=== PATIENT | male | born 1990 | race Two or more races ===

== ENCOUNTER 2024-10-16 09:38 | Outpatient (REF) | payer MEDICAID, SELFPAY ==
[2024-10-16 12:22] LABS: Cortisol Random 12.6 ug/dL
[2024-10-16 12:27] LABS: HBS Num1 1.56 mIU/mL (0-7.99); HBc Num1 11.96 S/CO (0.00-0.79); ~Hepatitis B Surface Antibody NONREACTIVE (Nonreactive)
[2024-10-16 12:32] LABS: HBsAGNum1 5171.43 S/CO (0.00-0.99); HIV AB/AG Nonreactive (Nonreactive); HIV Num 1 0.06 S/CO (0.00-0.99); ~HepC Num1 0.15 S/CO (0.00-0.79); ~Hepatitis C Antibody Nonreactive (Nonreactive)
[2024-10-16 13:41] LABS: HBc Num2 11.72 S/CO; HBc Num3 11.64 S/CO; HBsAGNum2 Reactive; HBsAGNum3 Reactive; Hepatitis B Core Antibody Reactive (Nonreactive); Hepatitis B Surface Antigen Retest CNFM (Negative)
--- OUTSIDE RECORDS SUMMARY | 2024-10-16 14:03 | XMS_ITS | Encounter Summary ---
Author Organization [employer] Address [address] [facility] 7[address] [place] [address] Care Team Providers Care Technical Business Analyst Name Role Phone Cindy Jacob VANCE Primary Care Provider [phone] Encounter Details Date Type Department Care Team (Latest Contact Info) Description 10/16/2024 Travel Social History Tobacco Use Types Packs/Day Years Used Date Smoking Tobacco: Never Smokeless Tobacco: Never Alcohol Use Standard Drinks/Week Comments Never 0 (1 standard drink = 0.6 oz pur e alcohol) Depression Answer Date Recorded Patient Health Questionnaire-9 Score 0 10/16/2024 Patient Health Questionnaire-9 Score 0 10/16/2024 Last PHQ-9: Questionnaire Data Not on file 0 10/16/2024 Housing Stability Answer Date Recorded What is your housing situation today? I have leslie cook 10/16/[address] you li ve. Do you have problems with any of the following? None of the above 10/16/2024 Food Insecurity Answer Date Recorded Within the past 12 months, y ou worried that your food would run out before you got money to buy more: Never True 10/16/2024 Within the past 12 months,th e food you bought just didn't last and you didn't have enough money to get more: Never True Transportation Answer Date Recorded In the past 12 months, has l ack of transportation kept you from medical appts, meetings, work or from getting things needed for daily living? No 10/16/2024 Utilities Answer Date Recorded In the past 12 months, has t he electric, gas, oil or water company threatened to shut off services in your home? No 10/16/2024 Depression Answer Date Recorded Patient Health Questionnaire-2 Score 0 10/16/2024 Internet Access Answer Date Recorded Internet Access Q1 Yes 10/16/2024 Internet Access Q2 Not on file 10/16/2024 Sex and Gender Information Value Date Recorded Sex Assigned at Male 07/20/2022 10:16 AM EDT Legal Sex Male 10:16 AM EDT Gender Identity Male 07/20/2022 10:16 AM EDT Sexual Orientation Don't know 07/20/2022 10 :16 AM EDT documented as of this encounter Plan of Treatment Not on file documented as of this encounter Visit Diagnoses Not on filedocumented in this encounter Additional Health Concerns Assessment Noted Time PHQ-9 Depression Total Score: 0 10/16/19 25 9:08 AM EST documented as of this encounter Care Teams Technical Business Analyst Relationship Specialty Start Date End Date Cindy Jacob NP [address] [place] [id number] PCP - General Family Medicine 06/25/23 documented as of this encounter
--- OUTSIDE RECORDS SUMMARY | 2024-10-16 14:03 | XMS_ITS | Encounter Summary ---
Author Organization [employer] Address [address] [facility] 7t [place] [address] Care Team Providers Care Game Room Attendant Name Role Phone Cindy Jacob NP Primary Care Provider [phone] Reason for Visit * Reason Onset Date Comments Nurse Triage 09/21/2024 Encounter Details Date Type Department Care Team ([facility] st Contact Info) Description 09/21/2024 Telephone [facility] MEDICINE [address] [place], [place] [id number] Cindy Jacob NP [address] [place] [address] Nurse Triage Social History Tobacco Use Types Packs/Day Years Used Date Smoking Tobacco: Never Smokeless Tobacco: Never Alcohol Use Standard Drinks/Week Comments Never 0 (1 standard drink = 0.6 oz pur e alcohol) Housing Stability Answer Date Recorded What is your housing situation today? I have leslie cook 09/17/[address] you li ve. Do you have problems with any of the following? None of the above 09/17/2023 Food Insecurity Answer Date Recorded Within the past 12 months, y ou worried that your food would run out before you got money to buy more: Never True 09/17/2023 Within the past 12 months,th e food you bought just didn't last and you didn't have enough money to get more: Never True Transportation Answer Date Recorded In the past 12 months, has l ack of transportation kept you from medical appts, meetings, work or from getting things needed for daily living? No 09/17/2023 Utilities Answer Date Recorded In the past 12 months, has t he electric, gas, oil or water company threatened to shut off services in your home? No 09/17/2023 Sex and Gender Information Value Date Recorded Sex Assigned at Male 07/20/2022 10:16 AM EDT Legal Sex Male 10:16 AM EDT Gender Identity Male 07/20/2022 10:16 AM EDT Sexual Orientation Don't know 07/20/2022 10 :16 AM EDT documented as of this encounter Miscellaneous Notes * Telephone Encounter - Jaquelin Arora RN - 09/26/2024 3:48 PM EST Tc to parent of pt in regards to appt request with PCP in the morning. Informed mom that PCP next available appt will not be until 10/16/24. Mom gave the phone to daughter to help with [place] translation. Daughter reports that pt last BM was on Wednesday and reports pt does not like to move their bowels unless an Enema is used. Daughter reports this has been going on since 2019 with the patient. Informed them we can schedule with another provider so that pt will be sooner but they insisted for to see their PCP. Daughter denies pt showing signs of cp and sob. They report pt has been losing weight and advised them to bring pt in to the [facility] to be evaluated. Provided extended and regular hours at the [facility]. Daughter verbalized understanding and denies any further questions or concerns at this time. Pt scheduled for follow up appt with PCP on 10/16/24 at 9 AM and advised to andrew our office for any further questions or concerns. * Telephone Encounter - Kayleigh Harper LPN - 09/21/2024 1:08 PM EST Triage call returned to patient Mom and Sister Yumiko who reports ongoing issue with constipation. Patient taking Metamucil and then is followed with [facility] Enema for BM per routine. . No vomiting today had vomiting for several days last week that resolved. No constant abdominal pain at time of call.Had enema today and had BM with good effect. Patient is eating and drinking at baseline. Mom expresses concerns of weight loss and believes weight to be in the 140's. Patient Sister reports medication ( valium 5mg) obtained by Psych provider for PRN use prior to lab draws and MD visit. Patient needs first am appt. with PCP as behavioral and difficult late day. Sister Yumiko also wants to be updated in regards to paperwork she dropped off so that patient may be seen by Dental Provider. Paperwork only dropped off last Wednesday. No PCP appts available to schedule. Team tasked to follow with [facility] for early AM slot. Telephone as listed is accurate. [phone]. Protocol Used: Constipation (Adult) Protocol-Based Disposition: See in Office or Video Visit within 3 Days Override (Final) Disposition: Discuss with PCP and Callback by Nurse Today Override Reason: Desired specific provider Override Notes: Patient requires 9am appt due to disability and behavior. None available at time ofcall. Video visit not offered Positive Triage Questions: * Significant weight loss (more than 10 pounds [4.5 kg]; 5% or more) and not dieting * Patient wants to be seen * All higher-acuity triage questions were negative Care Advice Discussed: * Enemas * Reasons To Call Back - Constipation lasts more than 1 week after using Care Advice - Abdomen swelling, vomiting or fever occur - Constant or increasing abdomen pain - You think you need to be seen - You become worse * Telephone Encounter - Gabriela Jett - 09/21/2024 12:38 PM EST Symptoms: Constipation, Vomiting Outcome: Schedule an urgent appointment (within 1 hour) or talk to a nurse or provider soon Reason: Constant stomach pain The caller accepted this outcome. Contact pt mom at [phone] documented in this encounter Plan of Treatment Not on file documented as of this encounter Visit Diagnoses Not on filedocumented in this encounter Care Teams Game Room Attendant Relationship Specialty Start Date End Date Cindy Jacob NP [address] [place] [id number] PCP - General Family Medicine 06/25/23 documented as of this encounter
--- OUTSIDE RECORDS SUMMARY | 2024-10-16 14:03 | XMS_ITS | Encounter Summary ---
Author Organization [employer] Address [address] [facility] 7t [place] [address] Care Team Providers Care Plumbing Manager Name Role Phone Cindy Jacob NP Primary Care Provider [phone] Reason for Visit * Reason Onset Date Comments Durable Medical Equipment 09/26/2024 Gloves recert Encounter Details Date Type Department Care Team ([facility] st Contact Info) Description 09/26/2024 Telephone [facility] MEDICINE [address] [place] [address] Cindy Jacob NP [address] [place] [address] Durable Medical Equipment (Gloves recert) Social History Tobacco Use Types Packs/Day Years [...] t he electric, gas, oil or water [employer] threatened to shut off services in your home? No 09/17/2023 Sex and Gender Information Value Date Recorded Sex Assigned at Male 07/20/2022 10:16 AM EDT Legal Sex Male 10:16 AM EDT Gender Identity Male 07/20/2022 10:16 AM EDT Sexual Orientation Don't know 07/20/2022 10 :16 AM EDT documented as of this encounter Miscellaneous Notes * Telephone Encounter - Tyrone Richards RN - 10/02/2024 3:36 PM EST Confirmation of order for Gloves signed and faxed to [employer] . Confirmation received and sent to scan. If patient calls to check status on above, please advise them to contact [employer] at [phone]. * Telephone Encounter - Charu Bolton - 09/26/2024 11:02 AM EST Confirmation of order for Gloves from [employer] received. Sent to pcp for review and signature via [employer]. documented in this encounter Plan of Treatment Not on file documented as of this encounter Visit Diagnoses Not on filedocumented in this encounter Care Teams Plumbing Manager Relationship Specialty Start Date End Date Cindy Jacob NP [address] [place] [id number] PCP - General Family Medicine 06/25/23 documented as of this encounter
--- OUTSIDE RECORDS SUMMARY | 2024-10-16 14:03 | XMS_ITS | Encounter Summary ---
Author Organization [employer] Address [address] [facility] [address] [place] [address] Care Team Providers Care Mental Health Director Name Role Phone Cindy Jacob NP Primary Care Provider [phone] Encounter Details Date Type Department Care Team (Late st Contact Info) Description 07/08/2023 Abstract [facility] MEDICINE [address] [place] [address] Cindy Jacob NP [address] [place] [address] Social History Tobacco Use Types Packs/Day Years Used Date Smoking Tobacco: Never Smokeless Tobacco: Never Alcohol Use Standard Drinks/Week Comments Never 0 (1 standard drink = 0.6 oz pur e alcohol) Sex and Gender Information Value Date Recorded Sex Assigned at Male 07/20/2022 10:16 AM EDT Legal Sex Male 10:16 AM EDT Gender Identity Male 07/20/2022 10:16 AM EDT Sexual Orientation Don't know 07/20/2022 10 :16 AM EDT documented as of this encounter Plan of Treatment Not on file documented as of this encounter Visit Diagnoses Not on filedocumented in this encounter Care Teams Mental Health Director Relationship Specialty Start Date End Date Cindy Jacob NP [address] [place] [address] PCP - General Family Medicine 06/25/23 documented as of this encounter
--- OUTSIDE RECORDS SUMMARY | 2024-10-16 14:03 | XMS_ITS | Encounter Summary ---
Author Organization [employer] Address [address] [facility] [address] [place] [address] Care Team Providers Care Lead Quality Technician Name Role Phone Cindy Jacob NP Primary Care Provider [phone] Encounter Details Date Type Department Care Team (Late st Contact Info) Description 07/16/2023 Abstract [facility] MEDICINE [address] [place] [address] Cindy Jacob NP [address] [place] [address] Social History Tobacco Use Types Packs/Day Years [...] on filedocumented in this encounter Care Teams Lead Quality Technician Relationship Specialty Start Date End Date Cindy Jacob NP [address] [place] [address] PCP - General Family Medicine 06/25/23 documented as of this encounter
--- OUTSIDE RECORDS SUMMARY | 2024-10-16 14:03 | XMS_ITS | Clinical Summary ---
Author Organization [employer] Address [address] [facility] 7t [place] [address] Care Team Providers Care Email Marketing Assistant Name Role Phone Cindy Jacob VANCE Primary Care Provider [phone] Allergies No known active allergies Medications Strattera 25 MG capsule TAKE 1 CAPSULE BY MOUTH EVERY DAY IN THE MORNING 2 Active cloNIDine (Catapres) 0.2 MG tablet Take 0.2 mg by mouth 3 times daily. 2 Active Banophen 25 MG capsule TAKE 1 CAPSULE BY MOUTH EVERYDAY AT BEDTIME 2 Active lamoTRIgine (LaMICtal) 25 MG tablet TAKE 1 TABLET BY MOUTH EVERY DAY IN THE MORNING AND 2 TABLETS IN THE EVENING 2 Active melatonin 5 MG tablet TAKE 2 TABLETS BY MOUTH EVERY DAY AT BEDTIME 2 Active mirtazapine (Remeron) 15 MG tablet Take 15 mg by mouth at bedtime. 2 Active Senexon-S 8.6-50 MG tablet Take 1 tablet by mouth at bedtime. 2 Active traZODone (Desyrel) 100 MG tablet Take 100 mg by mouth at bedtime. 2 Active polyethylene glycol, PEG, 3350 (Glycolax) 17 GM/SCOOP powder Take 17 g by mouth. 8 Active acetaminophen (Tylenol) 325 MG tablet Take 2 tablets by mouth every 4 (four) hours. 5 Active QUEtiapine (SEROquel) 50 MG tablet Take 50 mg by mouth 2 times daily. 3 Active esomeprazole (NexIUM) 10 MG packetIndication s:Gastroesophage al reflux disease without esophagitis MIX ONE PACKET IN WATER AND DRINK ONCE DAILY 30 MINUTES BEFORE MEAL. 90 each 4 Active Active Problems Problem Noted Date Diagnosed Date Unexplained weight loss 06/02/2024 Assessment & Plan (06/02/2024 10:14 PM EDT): -BMI is within acceptable range -documented loss of 6 lbs over 6 months period based on clinic weights -weight loss could be benign and resulting from patients level of uncontrolled activity. It is also likely for the weight loss to be r/t a metabolic disturbance. He has not had labs studies since 2019 and would benefit from evaluation of his metabolic functions. The patient's mom is open to sedating him for blood work to be completed. I will research creative ways in which this may be possible. -call for follow-up after psych visit or sooner as needed Oral xena 09/17/2023 Assessment & Plan (09/17/2023 1:29 PM EST): -exudate noted in posterior phaynx on exam -may be food remnants from regurgitation or xena infection -will treat for oral xena given poor dental hygiene -rx sent to pharmacy Routine adult health maintenance 09/17/2023 Assessment & Plan (06/02/2024 9:48 PM EDT): -unable to provide routine health maintenance care for the patient secondary to his developmental delay -failed attempts at speaking with his psych provider regarding sedation plan to have labs drawn. Family is asked to discuss this with the Dr. Pearce at the patient's next visit with her Assessment & Plan (09/21/2023 3:35 PM EST): -BP and pulse elevated. Unable to obtain accurate reading due to cognitive -needs dental care: I spoke with [facility] dental. They will call the patient's family and set-up an appointment for consultation -will collaborate with psych provider to develop plan for sedation for medically necessary procedures to occur -call placed to Dr. Catia Pearce's office Gastroesophageal reflux disease without esophagi tis 09/17/2023 Assessment & Plan (09/21/2023 3:40 PM EST): -patient likely has GERD based on family's description of spitting up after meals -failed omeprazole therapy as he chews his medication -will trial liquid formulation using nexium if patient is unable to tolerate liquid medications. Otherwise, -will obtain PA and trial lanzoprazole ODT -Patient's brother (Jairo) believes the spitting up is behavioral Elimination disorder 09/17/2023 Assessment & Plan (09/17/2023 1:47 PM EST): -bowel and urine incontinence due to cognitive impairment -uses pull-up XL 8 times per day Chronic type B viral hepatitis 09/24/2022 Assessment & Plan (09/17/2023 1:23 PM EST): -unable to determine current status. Mom would like have testing completed -last seen by GI in 2019. CT w/o contrast revealed normal liver size, shape, and attenuation. No hepatic lesion or dilatation (09/19/2019) -needs LFT's and hepatitis labs (last set of hep labs 3 years ago) -will contact psych provider to devise a plan for short term sedation for medically necessary procedures. 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 Pearce to inquire about possibly increasing trazadone dose Resolved Problems Problem Noted Date Diagnosed Date Resolved Date Overweight 06/22/2018 06/02/2024 Encounters Date Type Department Care Team Description 10/16/2024 9:00 AM EST Office Visit [address] [address] Cindy Jacob NP Weight loss, unintentional (Primary Dx); Other constipation 10/16/2024 Orders Only [address] [address] Cindy Jacob NP 10/16/[address] [address] Cindy Jacob NP 10/16/2024 Travel 10/11/[address] [address] Richard Sprague MA chartprep 09/26/[address] [address] Cindy Jacob NP Durable Medical Equipment (Gloves recert) 09/21/[address] [address] Cindy Jacob NP Nurse Triage from Last 3 Months Immunizations Name Administration Dates Next Due Hep A, ped/adol, 2 dose 10/17/2012,04/20/2012, Hep B, Adolescent or Pediatric 06/20/2000 IPV 12/13/2002,05/20/2001,06/20/2000 Influenza injectable quadriv alent IIV4 with preservative 06/22/2018,07/07/2017 Influenza injectable quadriv alent preservative free 07/17/2019 Influenza, IIV3, injectable 06/23/2006, 2 Influenza, Split (incl. cassie fied surface antigen) 05/09/2014,10/17/2012 MMR 05/20/2001,06/20/2000 Meningococcal B, Recombinant 07/17/2019 Meningococcal MCV4P ACYW-135 05/09/2014,06/23/20 06 Pneumococcal Polysaccharide PPSV23 05/09/2014 TD (adult), 2 Lf tetanus tox oid, preservative free, adsorbed 07/17/2019,06/18/2008,12/13/2002,05/20,06/20/2000 Tdap 01/27/2010 Varicella 06/18/2008,05/20/2001 Social History Tobacco Use Types Packs/Day Years Used Date Smoking Tobacco: Never Smokeless Tobacco: Never Tobacco Cessation:Counseling Given: Not Answered Alcohol Use Standard Drinks/Week Comments Never 0 [...] Don't know 07/20/2022 10 :16 AM EDT Last Filed Vital Signs Vital Sign Reading Time Taken Comments Blood Pressure 123/88 10/16/2024 9:05 AM EST Pulse 62 10/16/2024 9:05 AM EST Temperature 36.9 ??C (98.4 ??F) 10/16/2024 9:05 AM ES T Respiratory Rate 15 10/16/2024 9:05 AM EST Oxygen Saturation 98% 10/16/2024 9:05 AM EST Inhaled Oxygen Concentration - - Weight 68.6 kg (151 lb 3.2 oz) 10/16/2024 9:05 A M EST Height 177.8 cm (5' 10 ) 10/16/2024 9:05 AM EST Body Mass Index 21.69 10/16/2024 9:05 AM EST Plan of Treatment Health Maintenance Due Date Last Done Comments Lipid Panel 1988 Hepatitis B Vaccines (2 of 3 - 3-dose series) 07/18/2000 06/20/2000 Family Planning (PISQ) 2003 Hepatitis A Vaccines (1 of 2 - Risk 2-dose series) 2007 10/17/2012, 04/20/2012, 04/20/2011 COVID-19 Vaccine ( season) 2024 Influenza Vaccine (#1) 2024 9, 06/22/2018, 07/07/2017, Additional history exists Alcohol/Substance Use Screening 10/16/2025 10/16/2024 Depression Screening 10/16/2025 10/16/2024, 10/16/19 SDOH Screening 10/16/2025 10/16/2024 Tobacco Screening 10/16/2025 10/16/2024 DTaP/Tdap/Td Vaccines (6 - Td or Tdap) 07/17/2029 07/17/2019, 01/27/2010, 06/18/2008, Additional history exists Zoster Vaccines (1 of 2) 2038 RSV Patients and Patients Aged 60 years or older (1 - 1-dose 75+ series) 2063 IPV Vaccines Completed 12/13/2002, 04/22, 06/20/2000 Meningococcal Vaccine Completed 05/09/2014, 006 Pneumococcal Vaccine: Pediatrics (0 to 5 Years) and At-Risk Patients (6 to 64 Years) Aged Out 05/09/2014 No longer eligible based on patient's age to complete this topic HIV Screening Completed 10/16/2024 Hepatitis C Screening Completed 10/16/2024 HIB Vaccines Aged Out No longer eligi ble based on patient's age to complete this topic HPV Vaccines Aged Out No longer eligi ble based on patient's age to complete this topic RSV under 20 months Aged Out No longe r eligible based on patient's age to complete this topic Rotavirus Vaccines Aged Out No longer eligible based on patient's age to complete this topic Procedures Procedure Name Priority Date/Time Associated Diagnosis Comments CANCELLED CHEMISTRY Routine 10/16/2024 1 0:14 AM EST CORTISOL RANDOM Routine 10/16/2024 10:14 AM EST Weight loss, unintentional HIV 1/2 ANTIGEN/ANTIBODY, FOURTH GENERATION W/RFL Routine 10/16/2024 10:14 AM EST Weight loss, unintentional HEPATITIS C AB W/REFL TO HCV RNA, QN, PCR Routine 10/16/2024 10:14 AM EST Weight loss, unintentional HEPATITIS B SURFACE ANTIBODY, QUALITATIVE Routine 10/16/2024 10:14 AM EST Weight loss, unintentional HEPATITIS B CORE AB TOTAL Routine 10/16/2024 10:14 AM EST Weight loss, unintentional from Last 3 Months Results * Cancelled Chemistry (10/16/2024 10:14 AM EST) Cancelled Chemistry SEE NOTE [facility] Comment:THE FOLLOWING TESTS WERE CANCELLED: T3 TotalREASON: Quantity not sufficient 10/16/2024 10:1 4 AM EST 10/16/2024 12:53 PM EST us Cindy Appram SPA SUPERVISOR HISTORICAL/NON ORDERABLE LABS F inal Result [facility] [address] [place] [phone] * Cortisol Random (10/16/2024 10:14 AM EST) Cortisol Random 12.6 ug/dL [facility] Comment:Reference Range*: Be fore 10 am 6.2-19.4 ug/dL After 5 pm 2.3-11.9 ug/dL*Please interpret above results accordingly.This test was performed using the Macias chemiluminescentmethod. Values obtained from different assay methods cannotbe used interchangeably.Patients receiving fludrocortisone, prednisolone orprednisone may show artificially elevated cortisol valuesdue to cross-reactivity. 10/16/2024 10:1 4 AM EST 10/16/2024 11:25 AM EST [facility] SPA SUPERVISOR LAB BLOOD ORDERABLES Final Resu lt Performing Organization Address [facility]/ZIP Co de Phone Number [facility] [address] [place] [phone] * Hepatitis C Antibody with Reflex to HCV, RNA, Quantitative, Real-Time PCR (10/16/2024 10:14 AM EST) Hepatitis C Antibody Nonreactive Nonreactive [facility] Comment:Antibodies to HCV no t detected; does not exclude early acuteHCV infection. Blood Venous blood specimen / Unknown 10/16/2024 10:14 AM EST 10/16/2024 11:25 AM EST [facility] LAB BLOOD ORDERABLES Final Resu lt Performing Organization Address [facility] Co de Phone Number [facility] [address] [place] [phone] * Hepatitis B Core Antibody, Total (10/16/2024 10:14 AM EST) Hepatitis B Core Antibody Reactive Nonreactive [facility] Comment:Presumptive evidence of anti-HBc. Blood Venous blood specimen / Unknown 10/16/2024 10:14 AM EST 10/16/2024 11:25 AM EST [facility] LAB BLOOD ORDERABLES Final Resu lt Performing Organization Address [facility]/ZIP Co de Phone Number [facility] [address] [place] [phone] * HIV-1/2 Antigen and Antibodies, Fourth Generation, with Reflexes (10/16/2024 10:14 AM EST) HIV AB/AG Nonreactive Nonreactive [facility] Comment:HIV-1 p24 Ag and/or HIV-1/HIV-2 Ab not detected.A test result that is nonreactive does not exclude thepossibility of exposure to or infection with HIV-1 and/orHIV-2. Nonreactive results in this assay for individualswith prior exposure to HIV-1 and/or HIV-2 may be due toantigen and antibody levels that are below the limit ofdetection of this assay.The [place] HIV Ag/Ab Combo assay result andsupplemental assay results should be interpreted inconjunction with the patient's clinical presentation,history and other laboratory results. If the results areinconsistent with clinical evidence, additional testing issuggested to confirm the result. Blood Venous blood specimen / Unknown 10/16/2024 10:14 AM EST 10/16/2024 11:25 AM EST [facility] LAB BLOOD ORDERABLES Final Resu lt Performing Organization Address [facility]/ZIP Co de Phone Number [facility] [address] [place] [phone] * Hepatitis B Surface Antibody, Qualitative (10/16/2024 10:14 AM EST) Pathologist [facility] ~Hepatitis B Surface Antibody NONREACTIVE Nonreactive [facility] Comment:Nonreactive: < 8.00 mIU/mL Blood Venous blood specimen / Unknown 10/16/2024 10:14 AM EST 10/16/2024 11:25 AM EST [facility] LAB BLOOD ORDERABLES Final Resu lt Performing Organization Address City/[facility]/ZIP Co de Phone Number [facility] [address] [place] [phone] [phone] from Last 3 Months Insurance C3 Care Teams Email Marketing Assistant Relationship Specialty Start Date End Date Cindy Jacob NP [address] [place] [phone] PCP - General Family Medicine 06/25/23
--- OUTSIDE RECORDS SUMMARY | 2024-10-16 14:04 | XMS_ITS | Clinical Summary ---
Author Organization [facility] ity Address [address] [place] [address] Care Team Providers Care Oil Well Gun Perforator Operator Name Role Phone Unavailable Primary Care Provider Unavailabl e Social History Tobacco Use Types Packs/Day Years Used Date Smoking Tobacco: Never Assessed Sex and Gender Information Value Date Recorded Sex Assigned at Not on file Gender Identity Not on file Sexual Orientation Not on file Plan of Treatment Health Maintenance Due Date Last Done Comments DTaP,Tdap,and Td Vaccines (1 - Tdap) 2007 Hepatitis B Vaccines (1 of 3 - 19+ 3-dose series) 2007 COVID-19 Vaccine (2023-2 5 season) 2024 Influenza Vaccine (#1) 2024 HIB Vaccines Aged Out No longer eligi ble based on patient's age to complete this topic HPV Vaccines Aged Out No longer eligi ble based on patient's age to complete this topic Hepatitis A Vaccines Aged Out No long er eligible based on patient's age to complete this topic IPV Vaccines Aged Out No longer eligi ble based on patient's age to complete this topic MMR Vaccines Aged Out No longer eligi ble based on patient's age to complete this topic Meningococcal ACWY Vaccine Aged Out N o longer eligible based on patient's age to complete this topic Pneumococcal Vaccine: Pediat rics (0 to 5 Years) and At-Risk Patients (6 to 64 Years) Aged Out No longer eligible b ased on patient's age to complete this topic RSV Immunization Patients Un berenice 20 months Aged Out No longer eligible b ased on patient's age to complete this topic Varicella Vaccines Aged Out No longer eligible based on patient's age to complete this topic
--- OUTSIDE RECORDS SUMMARY | 2024-10-16 14:04 | XMS_ITS | Encounter Summary ---
Author Organization [employer] Address [address] [facility] [address] [place] [address] Care Team Providers Care Clerical Support Specialist Name Role Phone Cindy Jacob NP Primary Care Provider [phone] Reason for Visit * Reason Comments Follow-up Encounter Details Date Type Department Care Team (Latest Contact Info) Description 10/16/2024 9:00 AM EST Office Visit [facility] [address] [place] [address] Cindy Jacob NP [address] [place] [address] Weight loss, unintentional (Primary Dx); Other constipation Social History Tobacco Use Types Packs/Day Years [...] AM EDT documented as of this encounter Last Filed Vital Signs Vital Sign Reading [...] Mass Index 21.69 10/16/2024 9:05 AM EST documented in this encounter Plan of Treatment Scheduled Orders Name Type Priority Associated Diagnoses Orde r Schedule CBC auto differential Lab Routine Weight loss, unintentional Expected: 10/16/2024 (Approximate), Expires: 10/16/2025 TSH W/Reflex to FT4 Lab Routine Weight loss, unintentional Expected: 10/16/2024 (Approximate), Expires: 10/16/2025 T3, Total Lab Routine Weight loss, unintentional Expected: 10/16/2024 (Approximate), Expires: 10/16/2025 Sed Rate by Modified [place] Lab Routine Weight loss, unintentional Expected: 10/16/2024, Expires: 10/16/2025 C-reactive Protein Lab Routine Weight loss, unintentional Expected: 10/16/2024 (Approximate), Expires: 10/16/2025 Hemoglobin A1c Lab Routine Weight loss, unintentional Expected: 10/16/2024 (Approximate), Expires: 10/16/2025 Basic Metabolic Panel Lab Routine Weight loss, unintentional Expected: 10/16/2024 (Approximate), Expires: 10/16/2025 Hepatic Function Panel Lab Routine Weight loss, unintentional Expected: 10/16/2024 (Approximate), Expires: 10/16/2025 Iron And Total Iron Binding Capacity Lab Routine Weight loss, unintentional Expected: 10/16/2024, Expires: 10/16/2025 Hepatitis B surface antigen, EIA Lab Routine Weight loss, unintentional Expected: 10/16/2024 (Approximate), Expires: 10/16/2025 Fecal Globin by Immunochemistry Lab Routine Weight loss, unintentional Expected: 10/16/2024 (Approximate), Expires: 10/16/2025 Urinalysis, Complete, with Reflex to Culture Lab Routine Weight loss, unintentional Ordered: 10/16/2024 documented as of this encounter Procedures Procedure Name Priority Date/Time Associated Diagnosis Comments CORTISOL RANDOM Routine 10/16/2024 10:14 AM EST [...] 10/16/2024 10:14 AM EST Weight loss, unintentional documented in this encounter Results * Cortisol Random (10/16/2024 10:14 AM EST) Cortisol Random 12.6 ug/dL [facility] Comment:Reference Range*: Be fore 10 am 6.2-19.4 ug/dL After 5 pm 2.3-11.9 ug/dL*Please interpret above results accordingly.This test was performed using the Macias chemiluminescentmethod. Values obtained from different assay methods cannotbe used interchangeably.Patients receiving fludrocortisone, prednisolone orprednisone may show artificially elevated cortisol valuesdue to cross-reactivity. 10/16/2024 10:1 4 AM EST 10/16/2024 11:25 AM EST [facility] LAB BLOOD ORDERABLES Final Resu lt Performing Organization Address [facility]/ZIP Co de Phone Number [facility] [address] [place] [phone] * HIV-1/2 Antigen and Antibodies, Fourth Generation, with Reflexes (10/16/2024 10:14 AM EST) HIV AB/AG Nonreactive Nonreactive [facility] Comment:HIV-1 p24 Ag and/or HIV-1/HIV-2 Ab not detected.A test result that is nonreactive does not exclude thepossibility of exposure to or infection with HIV-1 and/orHIV-2. Nonreactive results in this assay for individualswith prior exposure to HIV-1 and/or HIV-2 may be due toantigen and antibody levels that are below the limit ofdetection of this assay.The [employer] HIV Ag/Ab Combo assay result andsupplemental assay results should be interpreted inconjunction with the patient's clinical presentation,history and other laboratory results. If the results areinconsistent with clinical evidence, additional testing issuggested to confirm the result. Blood Venous blood specimen / Unknown 10/16/2024 10:14 AM EST 10/16/2024 11:25 AM EST [facility] LAB BLOOD ORDERABLES Final Resu lt Performing Organization Address [facility]/ZIP Co de Phone Number [facility] [address] [place] [phone] * Hepatitis C Antibody with Reflex to HCV, RNA, Quantitative, Real-Time PCR (10/16/2024 10:14 AM EST) Hepatitis C Antibody Nonreactive Nonreactive [facility] Comment:Antibodies to HCV no t detected; does not exclude early acuteHCV infection. Blood Venous blood specimen / Unknown 10/16/2024 10:14 AM EST 10/16/2024 11:25 AM EST [facility] DIVISIONAL MERCHANDISING MANAGER LAB BLOOD ORDERABLES Final Resu lt Performing Organization Address [facility] Co de Phone Number [facility] [address] [place] [phone] * Hepatitis B Surface Antibody, Qualitative (10/16/2024 10:14 AM EST) ~Hepatitis B Surface Antibody NONREACTIVE Nonreactive [facility] Comment:Nonreactive: < 8.00 mIU/mL Blood Venous blood specimen / Unknown 10/16/2024 10:14 AM EST 10/16/2024 11:25 AM EST [facility] LAB BLOOD ORDERABLES Final Resu lt Performing Organization Address [facility] Co de Phone Number [facility] [address] [place] [phone] * Hepatitis B Core Antibody, Total (10/16/2024 10:14 AM EST) Hepatitis B Core Antibody Reactive Nonreactive [facility] Comment:Presumptive evidence of anti-HBc. Blood Venous blood specimen / Unknown 10/16/2024 10:14 AM EST 10/16/2024 11:25 AM EST [facility] LAB BLOOD ORDERABLES Final Resu lt Performing Organization Address [facility] Co de Phone Number [facility] [address] [place] [phone] documented in this encounter Visit Diagnoses Diagnosis Weight loss, unintentional- Primary Loss of weight Other constipation documented in this encounter Additional Health Concerns Assessment Noted Time PHQ-9 Depression Total Score: 0 10/16/19 25 9:08 AM EST documented as of this encounter Care Teams Clerical Support Specialist Relationship Specialty Start Date End Date Cindy Jacob NP [address] [place] [address] PCP - General Family Medicine 06/25/23 documented as of this encounter
--- OUTSIDE RECORDS SUMMARY | 2024-10-16 14:04 | XMS_ITS | Encounter Summary ---
Author Organization [employer] Address [address] [facility] 7[address] [place] [address] Care Team Providers Care Axle Inspector Name Role Phone Cindy Jacob VANCE Primary Care Provider [phone] Reason for Visit * Reason Onset Date Comments chartprep 10/11/2024 Encounter Details Date Type Department Care Team ([facility] st Contact Info) Description 10/11/2024 Telephone [facility] [address] [place] [address] Richard Sprague MA chartprep Social History Tobacco Use Types Packs/Day Years [...] encounter Miscellaneous Notes * Telephone Encounter - Richard Sprague MA - 10/11/2024 8:50 AM EST Chart Prep Labs: done Images: not applicable Vaccines due: Covid Due, Hep A Due, Hep B Due, and Flu Due Referrals: Not Applicable Screenings: Not Applicable Overdue care gaps: SDOH and PHQ-9,PISQ,oral health, LINDA-7,SBIRT, documented in this encounter Plan of Treatment Not on file documented as of this encounter Visit Diagnoses Not on filedocumented in this encounter Care Teams Axle Inspector Relationship Specialty Start Date End Date Cindy Jacob NP [address] [place] [phone] PCP - General Family Medicine 06/25/23 documented as of this encounter
[2024-10-17 07:23] LABS: Hepatitis B Core Antibody IgM NON-REACTIVE (NON-REACTIVE)
== END 2024-10-16 09:39 | disposition home or self-care (01) ==
LOC: HO.HHCL 09:38
PROVIDERS: Visit Provider Nurse Practitioner
DX: R63.4 Abnormal weight loss (principal); Z11.4 Encounter for screening for human immunodeficiency virus [HIV]
CPT/HCPCS: 36415; 82533; 84480; 86704; 86705; 86706; 86803; 87340; 87389